=== PATIENT | female | born 1980 | race Caucasian/White ===

== ENCOUNTER 2016-11-28 17:59 | Emergency (ER) | payer MEDICAID, OTHER ==
[~2016-11-28] VITALS: Ht 152.4 cm; Wt 65.0 kg
[~2016-11-28 17:59] MED LIST: ACET1TAB40 PO; ARIP5TAB7 PO; BACTDS PO; CITA-104 PO; DAL15 PO; DICY10CA60 PO; FAMO20TA18 PO; FER325 PO; HYDR-3498 PO; IBUP-1542 PO; IBUP800T25 PO; ONDA4TAB35 PO
[2016-11-28 18:24] VITALS: Ht 152.4 cm; Wt 65.0 kg
[2016-11-28] MEDS ORDERED: AMO500 PO (19:20)
[2016-11-28] MEDS ORDERED: CETI10CA PO (19:20)
[2016-11-28] MEDS ORDERED: IBUP-1542 PO (19:20)
--- NOTE | 2016-11-28 19:29 | ERD ---
ER Documentation Chief Complaint Date/Time DATE: 11/28/16 TIME: 19:22 Chief Complaint right ear eache x 4 days HPI 36-year-old female presents here in emergency department for complaints of right ear pain for 4 days. Patient described the pain as throbbing pain, 6/10 scale, not better or worse with anything. Patient denies any ear discharge. Patient has any problems with hearing. Patient did not take any medications to help with symptoms. Patient denies any trauma in the ear. ROS All systems reviewed and are negative except as per history of present illness. Medications Home Meds Active Scripts Cetirizine Hcl* (Zyrtec*) 10 Mg Capsule, 10 MG PO DAILY, #30 TAB.CHEW Prov:EULA FLOYD NP 11/28/16 Ibuprofen* (Motrin*) 600 Mg Tab, 600 MG PO Q6H Y for PAIN AND OR ELEVATED TEMP, #30 TAB Prov:EULA FLOYD NP 11/28/16 Amoxicillin* (Amoxicillin*) 500 Mg Cap, 500 MG PO TID for 10 Days, CAP Prov:EULA FLOYD NP 11/28/16 Famotidine* (Famotidine*) 20 Mg Tablet, 20 MG PO BID, #30 TAB Prov:NICOLETTE CRZU PA-C 04/26/16 Ondansetron Hcl* (Zofran* ODT) 4 mg -ODT Tab.disper, 4 MG PO Q4H Y for NAUSEA AND OR VOMITING, #20 TAB Prov:NICOLETTE CRUZ PA-C 04/26/16 Dicyclomine Hcl* (Bentyl*) 10 Mg Capsule, 10 MG PO QID, #14 CAP Prov:NICOLETTE CRUZ PA-C 04/26/16 Ibuprofen* (Motrin*) 600 Mg Tab, 600 MG PO Q6H Y for PAIN, #14 TAB Prov:DAVID TONY MD 03/05/16 Acetaminophen-Codeine* (Acetaminophen-Cod #3*) 300-30 Mg Tab, 1 TAB PO Q4H Y for PAIN, #10 TAB Prov:DAVID TONY MD 03/05/16 Sulfamethoxazole-Trimethoprim* (Bactrim* DS) 800-160 Mg Tab, 1 TAB PO BID for 7 Days, TAB Prov:DAVID TONY MD 03/05/16 Ibuprofen* (Motrin*) 800 Mg Tab, 800 MG PO Q6, #30 TAB Prov:GER CARNES PA-C 01/24/16 Hydrocodone Bit-Acetaminophen* ([place]*) 5-325 Mg Tab, 1 TAB PO Q6 Y for PAIN, # 7 TAB Prov:GER CARNES PA-C 01/24/16 Reported Medications Ferrous Sulfate* (Ferrous Sulfate*) 325 Mg Tabec, 325 MG PO DAILY, TAB 08/15/15 Citalopram Hydrobromide* (Citalopram Hydrobromide*) 40 Mg Tablet, 40 MG PO HS 03/14/14 Flurazepam Hcl ([place]) 15 Mg Cap, 30 MG PO HS, CAP 03/14/14 Aripiprazole* (Abilify*) 5 Mg Tab, 5 MG PO DAILY, TAB 03/14/14 Allergies Allergies: Coded Allergies: No Known Allergy (Unverified , 11/28/16) PMhx/Soc History of Surgery: Yes (, GALL BLADDER; hernia) Anesthesia Reaction: No Hx Neurological Disorder: No Hx Respiratory Disorders: No Hx Cardiac Disorders: No Hx Psychiatric Problems: Yes (anxiety) Hx Miscellaneous Medical Probl: No Hx Alcohol Use: No Hx Substance Use: No Hx Tobacco Use: No FmHx Family History: No coronary disease, No diabetes, No other Physical Exam Vitals Vital Signs Date Time Temp Pulse Resp B/P Pulse Ox O2 Delivery O2 Flow Rate FiO2 11/28/16 18:24 99.2 73 20 111/60 98 Physical Exam GENERAL: The patient is well developed and appropriate for usual state of health, in no apparent distress. HEENT: Atraumatic. Ears: Right ear tympanic membrane noted to be erythematous and bulging. Normal left tympanic membrane, no erythema or bulging. No ear canal swelling. No ear discharge. Nose: normal nasal turbinates, no erythema or swelling. Normal nasal discharge. Throat: oropharynx clear. No tonsillar swelling or tonsillar exudates. No lymphadenopathy. CHEST: Clear to auscultation bilaterally. There are no rales, wheezes or rhonchi. HEART: Regular rate and rhythm. No murmurs, clicks, rubs or gallops. No S3 or S4. ABDOMEN: Soft, nontender and nondistended. Good bowel sounds. No rebound or guarding. No gross peritonitis. No gross organomegaly or masses. No Ballard sign or McBurney point tenderness. BACK: No midline or flank tenderness. EXTREMITIES: Equal pulses bilaterally. There is no peripheral clubbing, cyanosis or edema. No focal swelling or erythema. Full range of motion. Grossly neurovascularly intact. NEURO: Alert and oriented. Cranial nerves 2-12 intact. Motor strength in all 4 extremities with 5/5 strength. Sensation grossly intact. Normal speech and gait. SKIN: There is no apparent rash or petechia. The skin is warm and dry. HEMATOLOGIC AND LYMPHATIC: There is no evidence of excessive bruising or lymphedema. No gross cervical, axillary, or inguinal lymphadenopathy. Procedures/MDM Medical decision making: Patient symptoms are most likely consistent with a right otitis media. No symptoms of otitis externa or mastoiditis. No symptoms of foreign body in the ear. No tympanic membrane perforation noted. No symptoms of sepsis at this time. Patient appears well and is hemodynamically stable. Patient is given prescription for amoxicillin, ibuprofen, Zyrtec, is advised to follow with primary care doctor in 2-3 days for reevaluation of symptoms. Patient advised to return to emergency department for any worsening symptoms. Departure Diagnosis: Primary Impression: Right otitis media Otitis media type: serous Chronicity: acute Recurrence: not specified as recurrent Qualified Code: H65.01 - Right acute serous otitis media, recurrence not specified Condition: Stable Patient Instructions: Otitis Media, Abx Tx [Child] EULA FLOYD NP Nov 28, 2016 19:29
== END 2016-11-28 19:22 | disposition home or self-care (01) ==
LOC: E/R 17:59
DX: H65.01 Acute serous otitis media, right ear (principal)
CPT/HCPCS: 99283

== ENCOUNTER 2017-01-20 12:32 | Emergency (ER) | payer OTHER ==
[~2017-01-20] VITALS: Wt 63.0 kg
[~2017-01-20 12:32] MED LIST changes: +AMO500 PO; +CETI10CA PO
--- NOTE | 2017-01-20 16:32 | ERD ---
ER Documentation Chief Complaint Date/Time DATE: 01/20/17 TIME: 16:27 Chief Complaint SWELLING ON FOREHEAD ABSCESS FOR 8 DAYS WITH INTERMITTENT DRAINAGE HPI Patient is a 36-year-old female with past medical history of a recurrent sebaceous cysts who presents to the emergency department with "swelling to her forehead." Patient states that 8 days ago she developed this swelling. Patient denies any active drainage. Patient does report tactile fevers however she denies any nausea, vomiting abdominal pain, loss of consciousness. Patient states in the past she has been seen here for an I&D of this cyst. Patient states this is now her fifth time having this cyst. Patient denies taking any medication for his symptoms. ROS All systems reviewed and are negative except as per history of present illness. Medications Home Meds Active Scripts Cetirizine Hcl* (Zyrtec*) 10 Mg Capsule, 10 MG PO DAILY, #30 TAB.CHEW Prov:EULA FLOYD NP 11/28/16 Ibuprofen* (Motrin*) 600 Mg Tab, 600 MG PO Q6H Y for PAIN AND OR ELEVATED TEMP, #30 TAB Prov:EULA FLOYD NP 11/28/16 Amoxicillin* (Amoxicillin*) 500 Mg Cap, 500 MG PO TID for 10 Days, CAP Prov:EULA FLOYD NP 11/28/16 Famotidine* (Famotidine*) 20 Mg Tablet, 20 MG PO BID, #30 TAB Prov:NICOLETTE CRUZ PA-C 04/26/16 Ondansetron Hcl* (Zofran* ODT) 4 mg -ODT Tab.disper, 4 MG PO Q4H Y for NAUSEA AND OR VOMITING, #20 TAB Prov:NICOLETTE CRUZ PA-C 04/26/16 Dicyclomine Hcl* (Bentyl*) 10 Mg Capsule, 10 MG PO QID, #14 CAP Prov:NICOLETTE CRUZ-Vitaly 04/26/16 Ibuprofen* (Motrin*) 600 Mg Tab, 600 MG PO Q6H Y for PAIN, #14 TAB Prov:DAVID TONY MD 03/05/16 Acetaminophen-Codeine* (Acetaminophen-Cod #3*) 300-30 Mg Tab, 1 TAB PO Q4H Y for PAIN, #10 TAB Prov:DAVID TONY MD 03/05/16 Sulfamethoxazole-Trimethoprim* (Bactrim* DS) 800-160 Mg Tab, 1 TAB PO BID for 7 Days, TAB Prov:DAVID TONY MD 03/05/16 Ibuprofen* (Motrin*) 800 Mg Tab, 800 MG PO Q6, #30 TAB Prov:GER CARNES PA-C 01/24/16 Hydrocodone Bit-Acetaminophen* ([place]*) 5-325 Mg Tab, 1 TAB PO Q6 Y for PAIN, # 7 TAB Prov:GER CARNES PA-C 01/24/16 Reported Medications Ferrous Sulfate* (Ferrous Sulfate*) 325 Mg Tabec, 325 MG PO DAILY, TAB 08/15/15 Citalopram Hydrobromide* (Citalopram Hydrobromide*) 40 Mg Tablet, 40 MG PO HS 03/14/14 Flurazepam Hcl ([place]) 15 Mg Cap, 30 MG PO HS, CAP 03/14/14 Aripiprazole* (Abilify*) 5 Mg Tab, 5 MG PO DAILY, TAB 03/14/14 Allergies Allergies: Coded Allergies: No Known Allergy (Unverified , 11/28/16) PMhx/Soc History of Surgery: Yes (, GALL BLADDER; hernia) Anesthesia Reaction: No Hx Neurological Disorder: No Hx Respiratory Disorders: No Hx Cardiac Disorders: No Hx Psychiatric Problems: Yes (anxiety) Hx Miscellaneous Medical Probl: No Hx Alcohol Use: No Hx Substance Use: No Hx Tobacco Use: No FmHx Family History: No diabetes Physical Exam Vitals Vital Signs Date Time Temp Pulse Resp B/P Pulse Ox O2 Delivery O2 Flow Rate FiO2 01/20/17 16:45 98.6 76 20 110/70 98 Room Air 01/20/17 12:39 99.2 88 20 112/70 98 Physical Exam GENERAL: Well-developed, well-nourished female. Appears in no acute distress. HEAD: Normocephalic, atraumatic. 1.5 cm circular nonerythematous fluctuant area noted at the center of the patient's forehead. Lesion is movable. Previous linear, midline incision noted. There is no induration. No active discharge or drainage. EYES: Pupils are equally reactive bilaterally. EOMs grossly intact. No conjunctival erythema. ENT: Moist mucous membranes. No uvula deviation. No kissing tonsils. NECK: Supple. No meningismus. Normal range of motion of the neck. LUNG: Clear to auscultation bilaterally. No rhonchi, wheezing, rales or coarse breath sounds. HEART: Regular rate and rhythm. No murmurs, rubs or gallops. EXTREMITIES: Equal pulses bilaterally. No peripheral clubbing, cyanosis or edema. No unilateral leg swelling. NEUROLOGIC: Alert and oriented. Moving all four extremities without any difficulty. Normal speech. Steady gait. SKIN: Normal color. Warm and dry. No rashes or lesions. Procedures/MDM MEDICAL DECISION MAKING: This is a 36-year-old female who presents to the emergency department for concerns "swelling" to her forehead. Patient has had a sebaceous cyst for the last 2 years intermittently in the affected area. Patient states that the cyst was attempted to be removed, however it has re-appeared. Vital signs were reviewed. Patient was afebrile. Given these findings, the patient's presentation is most consistent with recurrence of sebaceous cyst.. I have a much lower clinical concern for necrotizing fasciitis, sepsis, gangrene, Jack- Reginald syndrome, toxic epidural necrolysis, abscess, cellulitis, herpes zoster , anaphylaxis, deep space infection. At this time, there is no indication for an incision and drainage. Patient will need to follow-up with a aquarium tank attendant for further management of her recurrent cyst. I have given the patient a referral list of dermatologists in the area. DISCHARGE: At this time, patient is stable for discharge and outpatient management. I have advised the patient to avoid any new products, creams or possible allergens. I have advised the patient to avoid scratching the lesions. I have instructed the patient to follow-up with his/her primary care physician in 1-2 days. If symptoms persist, patient may need to see a aquarium tank attendant for further examinations and testing. I have instructed the patient to promptly return to the ER at any time for any new or worsening symptoms including increased pain, fever, redness, swelling, warmth, difficulty breathing or vomiting. The patient and/or family expressed understanding of and agreement with this plan. All questions were answered. Home care instructions were provided. Departure Diagnosis: Primary Impression: Sebaceous cyst Condition: Stable Patient Instructions: Sebaceous Cyst Referrals: RAFAEL MASSEY MD,JUAN DANIEL CARNES,NINA PHIPPS,JAVIER ADAM,JEFFREY DELATORRE,[facility] YOU HAVE RECEIVED A MEDICAL SCREENING EXAM AND THE RESULTS INDICATE THAT YOU DO NOT HAVE A CONDITION THAT REQUIRES URGENT TREATMENT IN THE EMERGENCY DEPARTMENT. FURTHER EVALUATION AND TREATMENT OF YOUR CONDITION CAN WAIT UNTIL YOU ARE SEEN IN YOUR DOCTORS OFFICE WITHIN THE NEXT 1-2 DAYS. IT IS YOUR RESPONSIBILITY TO MAKE AN APPOINTMENT FOR FOLOW-UP CARE. IF YOU HAVE A PRIMARY DOCTOR --you should call your primary doctor and schedule an appointment IF YOU DO NOT HAVE A PRIMARY DOCTOR YOU CAN CALL OUR PHYSICIAN REFERRAL HOTLINE AT IF YOU CAN NOT AFFORD TO SEE A PHYSICIAN YOU CAN CHOSE FROM THE FOLLOWING [facility] [address] [facility] [address] [facility] [address] [facility] [address] [facility] [address] [address] [facility] [address] [facility]. [facility] YOU HAVE RECEIVED A MEDICAL SCREENING EXAM AND THE RESULTS INDICATE THAT YOU DO NOT HAVE A CONDITION THAT REQUIRES URGENT TREATMENT IN THE EMERGENCY DEPARTMENT. FURTHER EVALUATION AND TREATMENT OF YOUR CONDITION CAN WAIT UNTIL YOU ARE SEEN IN YOUR DOCTORS OFFICE WITHIN THE NEXT 1-2 DAYS. IT IS YOUR RESPONSIBILITY TO MAKE AN APPOINTMENT FOR FOLOW-UP CARE. IF YOU HAVE A PRIMARY DOCTOR --you should call your primary doctor and schedule and appointment IF YOU DO NOT HAVE A PRIMARY DOCTOR YOU CAN CALL OUR PHYSICIAN REFERRAL HOTLINE AT . IF YOU CAN NOT AFFORD TO SEE A PHYSICIAN YOU CAN CHOSE FROM THE FOLLOWING [facility] INSTITUTIONS: [facility] [address] [place] [address] [facility] [address] [place] [address] [facility] [address] [place] [address] Additional Instructions: Call your primary care doctor TOMORROW for an appointment during the next 1-2 days.See the doctor sooner or return here if your condition worsens before your appointment time. Patient will need to follow-up with a aquarium tank attendant for further management of her ongoing sebaceous cyst. NATHALY NAVARRO PA-C Jan 20, 2017 16:32
[2017-01-20 16:45] VITALS: BP 110/70; PULSE 76; RESP 20; TEMP 98.6
== END 2017-01-20 16:45 | disposition home or self-care (01) ==
LOC: FTE 12:32
DX: L72.3 Sebaceous cyst (principal)
CPT/HCPCS: 99282

== ENCOUNTER 2017-02-25 08:10 | Emergency (ER) | payer OTHER ==
[~2017-02-25] VITALS: Ht 152.4 cm; Wt 65.5 kg
[2017-02-25 08:12] VITALS: Ht 152.4 cm; Wt 65.5 kg
[2017-02-25] MEDS ORDERED: ONDANSETRON 4 MG INJ IV STA (08:51)
[2017-02-25 08:57] LABS: ADD SCAN DIFF NO
[2017-02-25 09:00] LABS: ABNORMAL IP MESSAGE 1; BASOPHILS % 0.4 % (0.0-2.0); EOSINOPHILS # 0.1 10^3/ul (0.0-0.5); EOSINOPHILS % 2.2 % (0.0-7.0); HEMATOCRIT 27.8 % (37.0-47.0); HEMOGLOBIN 7.5 g/dl (12.0-16.0); LYMPHOCYTES # 1.7 10^3/ul (0.8-2.9); LYMPHOCYTES % 31.3 % (15.0-51.0); MEAN CORPUSCULAR HEMOGLOBIN 18.3 pg (29.0-33.0); MEAN CORPUSCULAR VOLUME 67.8 fl (82.0-101.0); MONOCYTE # 0.4 10^3/ul (0.3-0.9); MONOCYTES % 6.8 % (0.0-11.0); NEUTROPHIL # 3.3 10^3/ul (1.6-7.5); NEUTROPHILS % 58.9 % (39.0-77.0); PLATELET COUNT 479 10^3/UL (140-415); RED CELL DISTRIBUTION WIDTH 21.3 % (11.5-14.5); WHITE BLOOD COUNT 5.6 10^3/ul (4.8-10.8)
[2017-02-25 09:23] LABS: CALCIUM 8.6 mg/dl (8.4-10.2); CREATININE 0.5 mg/dl (0.44-1.00); POTASSIUM 4.1 mmol/L (3.5-5.1)
[2017-02-25] MEDS ORDERED: CHOL500051 PO (09:33)
--- NOTE | 2017-02-25 09:59 | RADRPT ---
PROCEDURE: US Pelvis CLINICAL INDICATION: menorrhagia TECHNIQUE: Multiple sonographic images of the pelvis were obtained utilizing a transabdominal and endovaginal technique. The images were reviewed on a PACS workstation. COMPARISON: None. LMP: 02/09/2017 FINDINGS: The uterus measures 9.9 x 5.1 x 5.3 cm. The uterus is heterogeneous and endometrial echo complex is not well visualized because the junctional zone between the endometrium and myometrium is indistinc t. There is trace endocervical fluid. Several sub-centimeter Nabothian cysts are identified. The right ovary measures 2.3 x 1.4 x 1.5 cm. The left ovary is not visualized. There is normal vascu lar flow in both ovaries. No significant ovarian lesions are seen. No significant pelvic free fluid is identified. IMPRESSION: The uterus is heterogeneous and the junctional zone between the endometrium and myometrium is indist inct, as above. Findings suggest adenomyosis. Clinical correlation is recommended. If indicated, an MRI of the pelvis can be obtained for further evaluation. There is trace endocervical fluid consistent with the reported history of menorrhagia. Nonvisualization of the left ovary. RPTAT: EE Physician Toy Date Time Electronically viewed and signed by Physician Toy on 02/25/2017 09:59 /
[2017-02-25] MEDS ORDERED: NORG1TAB14 PO (12:11)
--- NOTE | 2017-02-25 12:18 | ERD ---
ER Documentation Chief Complaint Date/Time DATE: 02/25/17 TIME: 12:16 Chief Complaint SENT BY PMD FOR SEVERE ANEMIA,LOW H&H HPI This is a 36-year-old female who is complaining of the past 4 months of heavy vaginal bleeding. She states she will have 3 cycles in 1 month lasting 8 days that are heavy flow. She and the patient was called this morning and told to go to the ER due to being anemic with a hemoglobin of 6.9. Patient does feel some general fatigue and malaise. Currently no abdominal, no dizziness no chest pain shortness of breath ROS All systems reviewed and are negative except as per history of present illness. Medications Home Meds Active Scripts Norgestimate-Ethinyl Estradiol (Sprintec 28 Day Tablet) 1 Each Tablet, 3 EACH PO BID for 2 Days, #2 PACKET then 2 po BID x 2 days, then 1 po QD. Skip last week of pills and restart new pack at 1 po QD Prov:KAYLEE VARGHESE DO 02/25/17 Reported Medications Cholecalciferol (Vitamin D3) (Vitamin D3) 50,000 Unit Capsule, 55544 UNIT PO WEEKLY, CAP 02/25/17 Citalopram Hydrobromide* (Citalopram Hydrobromide*) 40 Mg Tablet, 40 MG PO HS 03/14/14 Flurazepam Hcl ([place]) 15 Mg Cap, 30 MG PO HS, CAP 03/14/14 Aripiprazole* (Abilify*) 5 Mg Tab, 5 MG PO DAILY, TAB 03/14/14 Discontinued Reported Medications Ferrous Sulfate* (Ferrous Sulfate*) 325 Mg Tabec, 325 MG PO DAILY, TAB 08/15/15 Discontinued Scripts Cetirizine Hcl* (Zyrtec*) 10 Mg Capsule, 10 MG PO DAILY, #30 TAB.CHEW Prov:EULA FLOYD NP 11/28/16 Ibuprofen* (Motrin*) 600 Mg Tab, 600 MG PO Q6H Y for PAIN AND OR ELEVATED TEMP, #30 TAB Prov:EULA FLOYD NP 11/28/16 Amoxicillin* (Amoxicillin*) 500 Mg Cap, 500 MG PO TID for 10 Days, CAP Prov:EULA FLOYD NP 11/28/16 Famotidine* (Famotidine*) 20 Mg Tablet, 20 MG PO BID, #30 TAB Prov:NICOLETTE CRUZ PA-C 04/26/16 Ondansetron Hcl* (Zofran* ODT) 4 mg -ODT Tab.disper, 4 MG PO Q4H Y for NAUSEA AND OR VOMITING, #20 TAB Prov:NICOLETTE CRUZ PA-C 04/26/16 Dicyclomine Hcl* (Bentyl*) 10 Mg Capsule, 10 MG PO QID, #14 CAP Prov:NICOLETTE CRUZ PA-C 04/26/16 Ibuprofen* (Motrin*) 600 Mg Tab, 600 MG PO Q6H Y for PAIN, #14 TAB Prov:DAVID TONY MD 03/05/16 Acetaminophen-Codeine* (Acetaminophen-Cod #3*) 300-30 Mg Tab, 1 TAB PO Q4H Y for PAIN, #10 TAB Prov:DAVID TONY MD 03/05/16 Sulfamethoxazole-Trimethoprim* (Bactrim* DS) 800-160 Mg Tab, 1 TAB PO BID for 7 Days, TAB Prov:DAVID TONY MD 03/05/16 Ibuprofen* (Motrin*) 800 Mg Tab, 800 MG PO Q6, #30 TAB Prov:GER CARNES PA-C 01/24/16 Hydrocodone Bit-Acetaminophen* ([place]*) 5-325 Mg Tab, 1 TAB PO Q6 Y for PAIN, # 7 TAB Prov:GER CARNES PA-C 01/24/16 Allergies Allergies: Coded Allergies: No Known Allergy (Unverified , 02/25/17) PMhx/Soc History of Surgery: Yes (, GALL BLADDER; hernia) Anesthesia Reaction: No Hx Neurological Disorder: No Hx Respiratory Disorders: No Hx Cardiac Disorders: No Hx Psychiatric Problems: Yes (anxiety, depression) Hx Miscellaneous Medical Probl: No (anemia, fibroids) Hx Alcohol Use: No Hx Substance Use: No Hx Tobacco Use: No Smoking Status: Never smoker FmHx Family History: No coronary disease Physical Exam Vitals Vital Signs Date Time Temp Pulse Resp B/P Pulse Ox O2 Delivery O2 Flow Rate FiO2 02/25/17 11:36 99.1 52 18 95/57 100 Room Air 02/25/17 10:33 98.1 68 18 98/61 100 Room Air 02/25/17 08:12 98.5 76 18 105/54 98 Physical Exam Const: Well-developed, well-nourished Head: Atraumatic, normocephalic Eyes: Normal Conjunctiva, PERRLA, EOMI, normal sclera, no nystagmus ENT: Normal External Ears, Nose and Mouth, moist mucus membranes. Neck: Full range of motion. No meningismus, no lymphadenopathy. Resp: Clear to auscultation bilaterally, no wheezing, rhonchi, rales Cardio: Regular rate and rhythm, no murmurs, S1 S2 present Abd: Soft, non tender x 4, non distended. Normal bowel sounds, no guarding or rebound, no pulsitile abdominal masses or bruits Skin: No petechiae or rashes, no ecchymosis , no maculopapular rash Back: No midline or flank tenderness Ext: No cyanosis, or edema, FROM x 4, normal inspection, neurovascularly intact x 4 Neur: Awake and alert, STR 5/5 x 4, sensation intact x 4, no focal findings, cerebellum intact Psych: Normal Mood and Affect Result Diagram: 02/25/17 0830 02/25/17 0830 Results 24 hrs Laboratory Tests Test 02/25/17 08:30 White Blood Count 5.610^3/ul Red Blood Count 4.1010^6/ul Hemoglobin 7.5g/dl Hematocrit 27.8% Mean Corpuscular Volume 67.8fl Mean Corpuscular Hemoglobin 18.3pg Mean Corpuscular Hemoglobin Concent 27.0g/dl Red Cell Distribution Width 21.3% Platelet Count 43589^3/UL Mean Platelet Volume 10.0fl Neutrophils % 58.9% Lymphocytes % 31.3% Monocytes % 6.8% Eosinophils % 2.2% Basophils % 0.4% Nucleated Red Blood Cells % 0.0/100WBC Neutrophils # 3.310^3/ul Lymphocytes # 1.710^3/ul Monocytes # 0.410^3/ul Eosinophils # 0.110^3/ul Basophils # 0.010^3/ul Nucleated Red Blood Cells # 0.010^3/ul Sodium Level 136mmol/L Potassium Level 4.1mmol/L Chloride Level 108mmol/L Carbon Dioxide Level 22mmol/L Anion Gap 10 Blood Urea Nitrogen 10mg/dl Creatinine 0.50mg/dl Glucose Level 101mg/dl Calcium Level 8.6mg/dl Serum HCG, Qualitative NEGATIVE Current Medications Medications (Trade) Dose Ordered Sig/Tex Route PRN Reason Start Time Stop Time Status Last Admin Dose Admin Ondansetron HCl (Zofran Inj) 4 mg ONCE STAT IV 02/25/17 08:51 02/25/17 08:52 DC 02/25/17 09:54 Ibuprofen (Motrin) 800 mg ONCE ONCE PO 02/25/17 12:30 02/25/17 12:31 Procedures/MDM PROCEDURE: US Pelvis CLINICAL INDICATION: menorrhagia TECHNIQUE: Multiple sonographic images of the pelvis were obtained utilizing a transabdominal and endovaginal technique. The images were reviewed on a PACS workstation. COMPARISON: None. LMP: 02/09/2017 FINDINGS: The uterus measures 9.9 x 5.1 x 5.3 cm. The uterus is heterogeneous and endometrial echo complex is not well visualized because the junctional zone between the endometrium and myometrium is indistinct. There is trace endocervical fluid. Several sub-centimeter Nabothian cysts are identified. The right ovary measures 2.3 x 1.4 x 1.5 cm. The left ovary is not visualized. There is normal vascular flow in both ovaries. No significant ovarian lesions are seen. No significant pelvic free fluid is identified. IMPRESSION: The uterus is heterogeneous and the junctional zone between the endometrium and myometrium is indistinct, as above. Findings suggest adenomyosis. Clinical correlation is recommended. If indicated, an MRI of the pelvis can be obtained for further evaluation. There is trace endocervical fluid consistent with the reported history of menorrhagia. Nonvisualization of the left ovary. RPTAT: EE Physician Toy Date Time Electronically viewed and signed by Shon Cabral Physician on 02/25/2017 09:59 RA/ CC: KAYLEE VARGHESE DO Patient's hemoglobin is 7.5. Will treat with 1 unit of packed red blood cells. She has evidence of the thyroid. Will discharge home on Sprintec control and follow-up with OB GEN Departure Diagnosis: Primary Impression: Anemia Anemia type: unspecified type Qualified Code: D64.9 - Anemia, unspecified type Additional Impression: Fibroids Uterine leiomyoma location: unspecified location Qualified Code: D25.9 - Uterine leiomyoma, unspecified location Condition: Stable Patient Instructions: Anemia, Iron Deficiency (Adult), Uterine Fibroids Referrals: MIRANDA MANRIQUEZ (PCP) KAYLEE VARGHESE DO Feb 25, 2017 12:18
[2017-02-25] MEDS ORDERED: IBUPROFEN 800 MG TAB PO ONE (12:30)
[2017-02-25 14:20] VITALS: BP 94/55; PULSE 55; RESP 16; TEMP 98.4
== END 2017-02-25 14:45 | disposition home or self-care (01) ==
LOC: E/R 08:10
DX: D64.9 Anemia, unspecified (principal); D25.9 Leiomyoma of uterus, unspecified
CPT/HCPCS: 36430; 76830; 76856; 80048; 84703; 85025; 86850; 86900; 86901; 86920; 96374; J2405; P9016; Z7502; Z7610

== ENCOUNTER 2017-10-13 09:08 | Outpatient (CLI) | payer OTHER ==
[~2017-10-13] VITALS: Ht 152.4 cm; Wt 66.8 kg
[~2017-10-13 09:08] MED LIST changes: -ACET1TAB40 PO; -AMO500 PO; -BACTDS PO; -CETI10CA PO; +CHOL500051 PO; -DICY10CA60 PO; -FAMO20TA18 PO; -FER325 PO; -HYDR-3498 PO; -IBUP-1542 PO; -IBUP800T25 PO; +NORG1TAB14 PO; -ONDA4TAB35 PO
[2017-10-13 09:20] VITALS: BP 101/58; PULSE 62; RESP 16; Ht 152.4 cm; Wt 66.8 kg
--- NOTE | 2017-10-13 12:28 | CONS ---
DATE OF ADMISSION: 10/13/2017 DATE OF CONSULTATION: 10/13/2017 [facility] OUTPATIENT CONSULTATION NOTE PLACE OF SERVICE: [facility] REFERRING PHYSICIAN: Coby Corbett M.D. Dear Dr. Corbett: Thank you very much for allowing us to continue to participate in the care of this very pleasant lad y and her wonderful family. REASON FOR CONSULTATION: Evaluation for recurrent hernia. HISTORY OF PRESENT ILLNESS: The patient is a very pleasant 36-year-old lady with multiple comorbidi ties and well known to me since her operation in August 2015 for repair of an umbilical incisional hernia, which was 1.5 cm x 2 cm repaired with 3 cm x 6 cm Physiomesh on 08/15/2015. She had not bee n back since her postoperative visit on 09/13/2015 for any further surgical difficulties. She has h ad a number of visits to the emergency department, as well as accessing health care for various comp laints. These included emergency room visits to [facility] and perhaps other hosp itals. She has also had imaging, the latest of which that we have access to from 02/22/2017 where s he underwent a CT scan of abdomen without contrast that demonstrated no evidence of umbilical or zoie tral wall hernia and a small hiatal hernia. She also reported having an MRI of the pelvis recently, which was for vaginal bleeding and there was mention of "hernia" per her recollection. The patient had a 9 to 10-year history of abdominal pain prior to her presentation in 2014 for her u mbilical hernia repair. She continues to have sensation of pain and what she describes as a bulge i n the periumbilical area inferior to her repair site, but within the general vicinity of this repair site. She describes occasional sensation of pain, which she gets when she lies down or turns to he r side. I could not get a clear history of whether she had any evidence of bowel obstruction or oth er hospitalizations for this area in the past. Certainly, she has had multiple visits to the emerge ncy department for various complaints. She currently does not report any issues with nausea or vomi ting, no reported significant difficulties with constipation or diarrhea. No blood in the stool or urine, that we can discern. No other major complaints. COMORBIDITIES: 1. Depression. 2. Anxiety. 3. Schizophrenia. 4. PTSD. 5. Status post . 6. Status post cholecystectomy. 7. Status post umbilical incisional ventral hernia repair with mesh (1.5 cm x 2 cm) defect repaired by use of a 3 cm x 6 cm Physiomesh on 08/15/2015 at [facility]. 8. BMI 28.2. ALLERGIES: NO KNOWN DRUG ALLERGIES. MEDICATIONS: Carefully recorded and reviewed in the electronic health record system. SOCIAL HISTORY: The patient is single. She does not report any significant issues with smoking, dr inking, or intravenous drug use. FAMILY HISTORY: There is no mention of major medical, surgical or oncologic problems in the family. REVIEW OF SYSTEMS: Other than the above-mentioned, there are no other pertinent positives or pertin ent negatives in a complete 14-point review of systems. PHYSICAL EXAMINATION: GENERAL: The patient appears to be a very pleasant lady of descent, appearing st ated age, sitting in a chair comfortably and in no acute distress. Her BMI is 28. VITAL SIGNS: Normal with slightly low blood pressure of 101/58. HEENT: Head is normocephalic and atraumatic. Her extraocular muscles and hearing are grossly intac t bilaterally and symmetrically. Her sclerae are nonicteric. CHEST: Rises symmetrically with each breath, and she is breathing comfortably. There are no audibl e wheezes, rales or rhonchi on the gross exam. ABDOMEN: Demonstrates an umbilical incision site, which appears to be clean, dry and intact without any evidence of erythema, edema, discharge or hernia. A careful examination of the area with and w ithout Valsalva maneuver demonstrates no evidence of obvious incisional hernia. The patient did not have significant tenderness to palpation in the region. The rest of the abdomen is soft, nontender and nondistended. There are no peritoneal signs or guarding. There is no evidence of organomegaly , caput medusae, engorged subcutaneous veins, or ascites. SKIN: Appears to be pink and feels warm to touch. NEUROLOGIC: She is awake, alert, and follows commands appropriately. LABORATORY DATA: Most recent lab values are from 02/25/2017, where her white blood cell count was 5 .6, hemoglobin 7.5, platelets 479. Electrolytes were normal. Total bilirubin was 0.3, AST 34, ALT 54, alkaline phosphatase 123, albumin 4.5, lipase 78. INR 0.99. Urinalysis did not show any nitrit e or leukocyte esterase. IMAGING: Pertinent results of the images from February of 2017 were reviewed above. ASSESSMENT AND PLAN: A very pleasant 37-year-old lady with a number of comorbidities including psyc hiatric issues with schizophrenia and PTSD and 12-year history of abdominal pain status post incisio nal ventral hernia in 2014, who is presenting with ongoing issues with vague abdominal pain complain ts, which do not correspond to a surgically correctable problem as best as I can tell from our physi sha exam from today. Her images that a few months old, also do not demonstrate any obvious evidence of an incisional hernia. There is mention of hiatal hernia, which appears to be small and does not correspond to any of the patient's symptoms. There was also a mention of a hernia in the report th at the patient remembers from her pelvic MRI, but I doubt that the pelvic images went as far up as h er umbilicus. Regardless, with the patient's complaints, it would be important for us to obtain fur ther imaging of the periumbilical region to see if there is evidence for incisional hernia. I expla ined the rationale behind my recommendations about 3 different times to the patient in different way s and then asked a [facility] employee head tennis professional to also go through this in [facility] for the patient to understand. The patient perseverated on her symptoms and I had a sense that d espite my very careful explanation of the logic behind the recommendations, the patient was still no t fully satisfied. I told her that if, after complete evaluation of this issue the patient still wo uld like to investigate this further, we can certainly ask for a second surgical opinion where anoth er surgeon could review all the available data and make his or her recommendations to the patient an d family. We did have to go through all of this, at least 2 or 3 times before the patient appeared to be satisfied and agreed with the plans. I answered all the patient's questions, and the patient at the end appeared to be somewhat satisfied with the plans. Note that the patient's son was in the room, but he did not participate in the conversation. With above assessment I have recommended the followin. Obtain MRI of the pelvis images and any other recent images. 2. If above images do not show the periumbilical region and do not show further light onto the clin ical picture, to then perform a CT scan of abdomen and pelvis to evaluate the periumbilical region c arefully. 3. Followup visit with us after above is done. 4. If there is no evidence of surgically correctable disease and the patient is still not satisfied with my recommendations of medical management to then refer the patient for a second opinion. Thank you again for allowing us to participate in the care of this very pleasant lady and her wonder ful family. If there are any questions, please feel free to contact me at [phone]. NATURE OF PRESENTING PROBLEM: Low risk. COMPLEXITY OF DECISION MAKING: Moderate complexity. Dictated By: ARFICA KURTZ/NANCY Conf#: [id number] DID#: [id number] CC: Win Fam M.D.; COBY CORBETT MD; DARRYL DAVID MD;*EndCC*
== END 2017-10-13 17:00 | disposition home or self-care (01) ==
LOC: HPC 09:08
PROVIDERS: ATTEND Transplant Surgery
DX: R10.33 Periumbilical pain (principal); K44.9 Diaphragmatic hernia without obstruction or gangrene; F32.9 Major depressive disorder, single episode, unspecified; F41.9 Anxiety disorder, unspecified; F20.9 Schizophrenia, unspecified; F43.10 Post-traumatic stress disorder, unspecified
CPT/HCPCS: G0463

== ENCOUNTER 2019-03-20 15:18 | Emergency (ER) | payer OTHER ==
[~2019-03-20] VITALS: Ht 160 cm; Wt 67.9 kg
[~2019-03-20 15:18] MED LIST changes: +ARIP5TAB14 PO; -ARIP5TAB7 PO; -CITA-104 PO; +CITA40TA6 PO
[2019-03-20 15:25] VITALS: BP 120/65; PULSE 82; RESP 18; Ht 160 cm; Wt 67.9 kg
[2019-03-20] MEDS ORDERED: ACETAMINOPHEN 325 MG TAB PO STA (17:32)
[2019-03-20] MEDS ORDERED: LIDOCAINE 2%/EPI MPF (SDV) 20 ML VIAL INJ STA (17:32)
[2019-03-20] MEDS ORDERED: DIPHTH/TET/ACEL PERTUSS (ADULT) 0.5 ML VIAL IM* ONE (18:00)
[2019-03-20] MEDS ORDERED: IBUP-1542 PO (18:08)
--- NOTE | 2019-03-20 18:22 | ERD ---
ER Documentation Chief Complaint Chief Complaint pt is bib family with c/o left thumb lac this am HPI This is a 39-year-old female who presents with laceration to the left thumb. Patient sustained laceration 5 hours prior to arrival, patient states was attempting to cut some cheese when she cut her left thumb with a clean knife. Patient admits to immediately bleeding cleaned to the area with alcohol and covered with a bandage for hemostasis. Patient admits to 9 out of 10 pain in the affected digit. Denies limited ROM. Patient still able to use the affected extremity. No hx of diabetes or active cancer. ROS All systems reviewed and are negative except as per history of present illness. Medications Home Meds Active Scripts Ibuprofen* (Motrin*) 600 Mg Tab, 600 MG PO Q6 for pain/inflammation, #30 TAB Prov:NICHOLAS CHAU PA-C 03/20/19 Norgestimate-Ethinyl Estradiol (Sprintec 28 Day Tablet) 1 Each Tablet, 3 EACH PO BID for 2 Days, #2 PACKET then 2 po BID x 2 days, then 1 po QD. Skip last week of pills and restart new pack at 1 po QD Prov:KAYLEE VARGHESE DO 02/25/17 Reported Medications Cholecalciferol (Vitamin D3) (Vitamin D3) 50,000 Unit Capsule, 80471 UNIT PO WEEKLY, CAP 02/25/17 Citalopram Hydrobromide* (Citalopram Hydrobromide*) 40 Mg Tablet, 40 MG PO HS 03/14/14 Flurazepam Hcl (Dalmane) 15 Mg Cap, 30 MG PO HS, CAP 03/14/14 Aripiprazole* (Abilify*) 5 Mg Tab, 5 MG PO DAILY, TAB 03/14/14 Allergies Allergies: Coded Allergies: No Known Allergy (Unverified , 02/25/17) PMhx/Soc History of Surgery: Yes (, GALL BLADDER; hernia) Anesthesia Reaction: No Hx Neurological Disorder: No Hx Respiratory Disorders: No Hx Cardiac Disorders: No Hx Psychiatric Problems: Yes (anxiety, depression) Hx Miscellaneous Medical Probl: No (anemia, fibroids) Hx Alcohol Use: No Hx Substance Use: No Hx Tobacco Use: No Smoking Status: Never smoker Physical Exam Vitals Vital Signs Date Temp Pulse Resp B/P (MAP) Pulse Ox O2 O2 Flow FiO2 Time Delivery Rate 03/20/19 100.1 82 18 120/65 97 15:25 (83) Physical Exam Const: No acute distress Head: Atraumatic Eyes: Normal Conjunctiva ENT: Normal External Ears, Nose and Mouth. Neck: Full range of motion. No meningismus. Resp: Clear to auscultation bilaterally Cardio: Regular rate and rhythm, no murmurs Abd: Soft, non tender, non distended. Normal bowel sounds Skin: No petechiae or rashes. 2 cm linear laceration to the medial aspects of the left thumb. No visible edema, erythema. No purulent discharge or warmth from the laceration. Back: No midline or flank tenderness Ext: No cyanosis, or edema. Sensation intact to radial, medial, ulnar distribution. Able to wiggle fingers of the affected extremity. Pulse 2+. Cap refill less than 2 seconds. Neur: Alert and oriented x3. Appropriate speech, mood and affect. Face is symmetric. Speech is normal. CN II-XII intact. Moves all extremities equally. Ambulates with a strong, steady gait. Psych: Normal Mood and Affect Results 24 hrs Current Medications Medications Dose Sig/Tex Start Time Status Last (Trade) Ordered Route PRN Stop Time Admin Dose Reason Admin Diphtheria/ 0.5 ml ONCE ONCE 03/20/19 DC 03/20/19 Tetanus/Acell IM* 18:00 17:55 Pertussis 03/20/19 18:01 (Adacel) Lidocaine/ 20 ml ONCE STAT 03/20/19 DC Epinephrine INJ 17:32 (Xylocaine 03/20/19 18:04 2%/ Epi Mpf(Sdv)) 650 mg ONCE STAT 03/20/19 DC 03/20/19 Acetaminophen PO 17:32 17:54 (Tylenol 03/20/19 17:39 Tab) Procedures/MDM MDM: Patient presents with 2 cm linear laceration over medial aspects of the left thumb. Patient has 2+ distal pulses, good capillary refill, and is neurovascularly intact. Patient tetanus status updated while in ED. Wound was irrigated profusely with saline er tech. After irrigation wound was found to be superficial with no active bleeding, sutures at this time not indicated. 5 Steri-Strips placed to laceration, covered with sterile gauze, and placed in an aluminum splint patient by er tech. At this time I have low suspicion for tendon injury, NV compromise, or retained foreign body. Patient is stable for discharge home and outpatient management at this time. Patient is discharged home at this time with a prescription for ibuprofen to use for inflammation and pain. Patient counseled regarding wound care precautions and advised not to wash area or get wet for the next 3 days. Patient advised to return to the ER within 40 to 72 hours for wound care follow-up. And/or to present sooner if new or worsening symptoms arise. Strict return precautions discussed. Patient expressed verbal understanding and agreement to treatment plan all questions addressed and answered. Departure Diagnosis: Primary Impression: Laceration Condition: Good Patient Instructions: Laceration, All Additional Instructions: you were seen today for a laceration to your left thumb. Upon further examination it was found that no sutures were needed. Ulceration has been repaired with Steri-Strips and placed in an aluminum splints. Please present back to the ED within 48 to 72 hours for wound reevaluation. Return sooner if you develop fever, worsening pain of the extremity, warmth, or redness. Being discharged with a prescription for ibuprofen for pain and inflammation. It is recommended that you take it as prescribed to help prevent further inflammation to the area. NICHOLAS CHAU PA-C March 20, 2019 18:21
== END 2019-03-20 18:38 | disposition home or self-care (01) ==
LOC: FTE 15:18
DX: S61.012A Laceration without foreign body of left thumb without damage to nail, initial encounter (principal); W26.0XXA Contact with knife, initial encounter; Y92.9 Unspecified place or not applicable; Z23 Encounter for immunization
CPT/HCPCS: 90471; 90715; Z7502; Z7610

== ENCOUNTER 2019-03-23 13:39 | Emergency (ER) | payer OTHER ==
[~2019-03-23] VITALS: Wt 67.6 kg
[~2019-03-23 13:39] MED LIST changes: +IBUP-1542 PO
[2019-03-23 13:42] VITALS: BP 112/64; PULSE 83
--- NOTE | 2019-03-23 15:14 | ERD ---
ER Documentation Chief Complaint Chief Complaint RIGHT THUMB WOUND CHECK HPI 39-year-old female presenting for wound check of her left thumb. Patient cut her left thumb 3 days ago with a knife. She is right-hand dominant. Up-to-date on vaccinations. Denies medical problems. NKDA. Surgical history , cholecystectomy and hernia repair. Social history denies ROS All systems reviewed and are negative except as per history of present illness. Medications Home Meds Active Scripts Ibuprofen* (Motrin*) 600 Mg Tab, 600 MG PO Q6 for pain/inflammation, #30 TAB Prov:NICHOLAS CHAU PA-C 03/20/19 Norgestimate-Ethinyl Estradiol (Sprintec 28 Day Tablet) 1 Each Tablet, 3 EACH PO BID for 2 Days, #2 PACKET then 2 po BID x 2 days, then 1 po QD. Skip last week of pills and restart new pack at 1 po QD Prov:KAYLEE VARGHESE DO 02/25/17 Reported Medications Cholecalciferol (Vitamin D3) (Vitamin D3) 50,000 Unit Capsule, 53827 UNIT PO WEEKLY, CAP 02/25/17 Citalopram Hydrobromide* (Citalopram Hydrobromide*) 40 Mg Tablet, 40 MG PO HS 03/14/14 Flurazepam Hcl (Dalmane) 15 Mg Cap, 30 MG PO HS, CAP 03/14/14 Aripiprazole* (Abilify*) 5 Mg Tab, 5 MG PO DAILY, TAB 03/14/14 Allergies Allergies: Coded Allergies: No Known Allergy (Unverified , 02/25/17) PMhx/Soc History of Surgery: Yes (, GALL BLADDER; hernia) Anesthesia Reaction: No Hx Neurological Disorder: No Hx Respiratory Disorders: No Hx Cardiac Disorders: No Hx Psychiatric Problems: Yes (anxiety, depression) Hx Miscellaneous Medical Probl: No (anemia, fibroids) Hx Alcohol Use: No Hx Substance Use: No Hx Tobacco Use: No Smoking Status: Never smoker FmHx Family History: No diabetes, No coronary disease, No other Physical Exam Vitals Vital Signs Date Temp Pulse Resp B/P (MAP) Pulse Ox O2 O2 Flow FiO2 Time Delivery Rate 03/23/19 99.6 83 112/64 99 13:42 (80) Physical Exam GENERAL: The patient is well-appearing, well-nourished, in no acute distress CHEST: Clear to auscultation bilaterally. There are no rales, wheezes or rhonchi. HEART: Regular rate and rhythm. No murmurs, clicks, rubs or gallops. EXTREMITIES: Normal range of motion of the left thumb. Normal flexion and extension. NEUROLOGIC: Alert and oriented. Cranial nerves II through XII intact. Motor strength in all 4 extremities with 5 out of [address] strength. Sensation grossly inta ct. Normal speech and gait. SKIN: Healed laceration site noted on the lateral aspect of the left thumb adjacent to the DIP joint. No active bleeding. Procedures/MDM MDM: 39-year-old female presenting for wound check. Patient's exam is non- concerning. Patient's wound is healing appropriately and there is no signs of tendon or ligament injury. I have low suspicion for vascular or neuro deficit. Patient is discharged and recommended to clean with soap and water normally. Patient is told symptoms change or worsen to return immediately to the ER. All questions answered at discharge Departure Diagnosis: Primary Impression: Encounter for wound re-check Condition: Stable Patient Instructions: Wound Care Referrals: MIRANDA MANRIQUEZ (PCP) Additional Instructions: FOLLOW UP WITH YOUR PRIMARY CARE PHYSICIAN TOMORROW.Return to this facility if you are not improving as expected. GER CARNES PA-C March 23, 2019 15:14
== END 2019-03-23 14:53 | disposition home or self-care (01) ==
LOC: FTE 13:39
DX: Z48.01 Encounter for change or removal of surgical wound dressing (principal)
CPT/HCPCS: 99281